=== PATIENT | female | born 1995 | race Caucasian/White ===

== ENCOUNTER 2016-12-20 13:42 | Emergency (ER) | payer OTHER ==
[2016-12-20 14:00] VITALS: BP 142/83; PULSE 89; TEMP 98.4; BMI 23.3
--- NOTE | 2016-12-20 14:24 | PDOC ---
History of Present Illness - General Chief Complaint: Sore Throat Stated Complaint: PAIN/ ABD, THROAT Time Seen by Provider: 12/20/16 14:03 History Source: Patient Exam Limitations: No Limitations - History of Present Illness Initial Comments: 12/20/16 14:21 21 yr female with c/o sore throat for 3 days. Pt also states she has had stomach ache for one year was dx with HY.Pylori and completed treatment.Pt has appointment next month with a GI doctor. pt denies nvd or fever at present. no medical history or allergies. Past History - Past Medical History Allergies/Adverse Reactions: Allergies Allergy/AdvReac Type Severity Reaction Status Date / Time No Known Allergies Allergy Verified 12/20/16 13:55 Home Medications: Ambulatory Orders NK [No Known Home Medication] 12/20/16 GI Disorders: Yes (h.pylori ) Other medical history: rhinitis - Suicide/Smoking/Psychosocial Hx Smoking History: Never smoked Hx Alcohol Use: No Drug/Substance Use Hx: No Review of Systems - Review of Systems Able to Perform ROS?: Yes Is the patient limited Tamazight proficient: No Constitutional: No: Symptoms Reported HEENTM: Yes: Symptoms Reported, Throat Pain *Physical Exam - Vital Signs Last Vital Signs Temp Pulse Resp BP Pulse Ox 98.4 F 89 18 142/83 99 12/20/16 13:45 12/20/16 13:45 12/20/16 13:45 12/20/16 13:45 12/20/16 13:45 - Physical Exam General Appearance: Yes: Nourished, Appropriately Dressed HEENT: positive: EOMI, CAILIN, Pharyngeal Erythema. negative: Tonsillar Erythema Neck: positive: Supple. negative: Lymphadenopathy (R), Lymphadenopathy (L) Respiratory/Chest: positive: Lungs Clear, Normal Breath Sounds Cardiovascular: positive: Regular Rhythm, Regular Rate Gastrointestinal/Abdominal: positive: Normal Bowel Sounds, Soft Musculoskeletal: positive: Normal Inspection Extremity: positive: Normal Capillary Refill, Normal Inspection, Normal Range of Motion Integumentary: positive: Normal Color, Dry, Warm Neurologic: positive: Fully Oriented, Alert, Normal Mood/Affect, Normal Response , Motor Strength 5/5 Medical Decision Making - Medical Decision Making 12/20/16 14:23 cc: sore throat afebrile non toxic will check for strep pt has appointment for follow up regarding chronic abd pain *DC/Admit/Observation/Transfer Diagnosis at time of Disposition: Pharyngitis Qualifiers: Pharyngitis/tonsillitis etiology: unspecified etiology Qualified Code(s): J02.9 - Acute pharyngitis, unspecified; J02.9 - Acute pharyngitis, unspecified - Discharge Dispostion Disposition: HOME Condition at time of disposition: Good - Referrals Referrals: Micaela Olivas MD [Primary Care Provider] - Zackary Blake MD [Staff Physician] - - Patient Instructions Additional Instructions: gargle with warm salt water 4-5 times a day get cepacol throat lozengers to help with sore throat drink pleanty of fluids follow with the ENT as directed for follow up - Post Discharge Activity
== END 2016-12-20 15:41 | disposition home or self-care (01) ==
LOC: JERFT 13:42
DX: J02.9 Acute pharyngitis, unspecified (principal)
CPT/HCPCS: 87070; 87430; 99281-25

== ENCOUNTER 2017-03-05 05:26 | Day surgery (SDC) | payer OTHER ==
[2017-03-01 15:04] VITALS: BMI 22.7
--- NOTE | 2017-03-04 17:03 | HP ---
Admitting History and Physical - Admission Chief Complaint: Nasal obstruction History of Present Illness: Pt with chronic nasal obstruction secondary to DNS and enlarged inferior turbinates History Source: Patient Limitations to Obtaining History: No Limitations - Past Medical History Gastrointestinal: Yes: GERD (nasal obstruction) ...LMP Comment: 02/26/17 - Past Surgical History Past Surgical History: Yes: None - Smoking History Smoking history: Current some day smoker (hooka) Have you smoked in the past 12 months: Yes - Alcohol/Substance Use Hx Alcohol Use: No Home Medications - Allergies Allergies/Adverse Reactions: Allergies Allergy/AdvReac Type Severity Reaction Status Date / Time No Known Allergies Allergy Verified 03/01/17 14:53 - Home Medications Home Medications: Ambulatory Orders Ergocalciferol (Vitamin D2) [Vitamin D2] 4,000 unit PO WEEKLY 03/01/17 Review of Systems - Review of Systems Constitutional: reports: No Symptoms HENT: reports: Nasal Congestion Neck: reports: No Symptoms Respiratory: reports: No Symptoms Physical Examination Constitutional: Yes: Well Nourished Eyes: Yes: WNL HENT: Yes: Nasal Congestion, Other (DNS with inferior turbinate hypertrophy) Respiratory: Yes: WNL Gastrointestinal: Yes: WNL Neurological: Yes: Cran Nerves II-XII Intact Problem List - Problems (1) Nasal obstruction Assessment/Plan: Pt with chronic nasal obstruction secondary to DNS and Inf Turb hypertrophy for septoplasty/SMR of turbinates Code(s): J34.89 - OTHER SPECIFIED DISORDERS OF NOSE AND NASAL SINUSES Assessment/Plan For septo/SMR under [place]
--- NOTE | 2017-03-05 09:18 | HP ---
History & Physical Update - History History: No Change - Physical Physical: No Change - Assessment Assessment: No Change - Plan Plan: No Change
[2017-03-05] MEDS ORDERED: ROCURONIUM BROMIDE 50 MG/5 ML VIAL ONE (09:29)
[2017-03-05] MEDS ORDERED: DEXAMETHASONE SOD PHOSPHATE 4 MG/1 ML VIAL ONE (09:29)
[2017-03-05] MEDS ORDERED: PROPOFOL 20 ML ONE (09:29)
[2017-03-05] MEDS ORDERED: COCAINE HCL 4% TOPICAL SOLUTION 4 ML BOTTLE TP ONE ×2 (09:29→10:10)
[2017-03-05] MEDS ORDERED: MIDAZOLAM HCL 2 MG/2 ML SINGLE DOSE VIAL ONE (09:29)
[2017-03-05] MEDS ORDERED: LIDOCAINE 1%/EPI 1:100000 (20 ML MULTI DOSE VIAL) ONE (09:31)
[2017-03-05] MEDS ORDERED: BACITRACIN 15 GM TUBE TOPICAL OINTMENT ONE (09:40)
[2017-03-05] MEDS ORDERED: LIDOCAINE 1%/EPI 1:100000 (20 ML MULTI DOSE VIAL) INF ONE (10:32)
[2017-03-05] MEDS ORDERED: GLYCOPYRROLATE 0.2 MG/1 ML VIAL ONE (10:36)
[2017-03-05] MEDS ORDERED: NEOSTIGMINE METHYLSULFATE 0.5 MG/ML - 10 ML MDV ONE (10:37)
[2017-03-05] MEDS ORDERED: oxyCODONE HCL 5 MG TABLET PO PRN (10:41)
[2017-03-05] MEDS ORDERED: ONDANSETRON 4 MG/2 ML VIAL IVPUSH PRN (10:52)
[2017-03-05] MEDS ORDERED: IBUPROFEN 800 MG/8 ML IJ IVPB PRN (10:52)
[2017-03-05] MEDS ORDERED: LACTATED RINGERS SOLUTION 1,000 ML IV SCH (11:00)
[2017-03-05 12:04] VITALS: TEMP 98
[2017-03-05] MEDS ORDERED: ONDANSETRON 4 MG/2 ML VIAL ONE (13:41)
[2017-03-05] MEDS ORDERED: ONDANSETRON 4 MG/2 ML VIAL IVPUSH ONE (13:47)
[2017-03-05 15:07] VITALS: BP 119/77; PULSE 84
--- NOTE | 2017-03-05 16:28 | OP ---
DATE OF OPERATION: 03/05/2017 PREOPERATIVE DIAGNOSIS: 1. Nasal obstruction secondary to deviated nasal septum. 2. Nasal obstruction secondary to bilateral inferior turbinate hypertrophy. POSTOPERATIVE DIAGNOSIS: 1. Nasal obstruction secondary to deviated nasal septum. 2. Nasal obstruction secondary to bilateral inferior turbinate hypertrophy. PROCEDURE: 1. Septoplasty. 2. Submucous resection bilateral inferior turbinates. ANESTHESIA: General. ANESTHESIOLOGIST: Daiana Noe M.D. BLOOD LOSS: 5 mL FINDINGS: 1. Marked septal deviation with bony spur. 2. Bilateral inferior turbinate hypertrophy. INDICATION: Patient is a 21-year-old female with chronic nasal obstruction, unrelieved with medical therapy, who presents for septoplasty and reduction of turbinates. Risks, benefits, and alternatives to the procedure were all explained to the patient. Questions were answered, consent was signed. PROCEDURE: After obtaining informed consent, patient was brought into the operating room, placed on the OR table in supine position. After general endotracheal anesthesia, was prepped and draped in the usual sterile fashion. 4% cocaine-soaked nasal pledgets were placed in the nasal cavity followed by injection of 1% lidocaine with epinephrine into nasal septal flaps, inferior turbinates, 5 mL was used. After allowing time for anesthesia to take effect, number 15 blade was used to make a left hemitransfixion incision, left mucoperichondrial flap was raised anterior-posterior fashion, anterior to the flexion incision was then made with a 15 blade through the septal cartilage and opposite side flap was raised intact. The deviated portion of the septum was isolated using sharp dissection forceps, the cartilage and bone was removed. A large dorsal L strap was left intact. Once removed, the airway appeared improved. No significant bleeding was seen. The flaps were then reapproximated with a 4-0 quilting stitch, and the incision closed with 4-0 chromic stitch. Attention was then turned to the inferior turbinates. The right inferior turbinate was medialized, stab incision was made in the anterior tip, submucosal resection was carried out with resection of the anterior portion of the turbinate bone and submucosa. Intramural cauterization with the suction Bovie cautery was performed. Flaps were reapproximated and the turbinate outfractured. Attention was then turned to the left turbinate, where again it was medialized. Stab incision made anterior tip, submucosal resection was carried out with resection of the anterior portion of the septal bone, submucosal cauterization with the suction Bovie was performed. Flaps were then reapproximated and lateralized. Marked improvement of the area was noted. No active bleeding was seen from Medpor packing was placed intranasally followed by tip dressing. No active bleeding was seen. Patient was then awoken from anesthesia, extubated, and transferred to recovery room awake, alert, in stable condition. RAEANN CALI M.D. [id number]
--- NOTE | 2017-03-06 14:13 | PATH ---
Surgical Pathology Report Patient Name: ANANTH STEVE [facility]. Rec. #: [id number] /Age/Gender: 1995 (Age: 21) / F Account: [id number] Location: [facility] SURGICAL Taken: 03/05/2017 Received: 03/05/2017 Reported: 03/06/2017 Physicians: Dale Doan M.D. Specimen(s) Received NASAL SEPTUM AND TURBINATES Clinical History Deviated nasal septum Final Diagnosis NASAL SEPTUM AND TURBINATES, BILATERAL TURBINECTOMY AND SEPTOPLASTY: FRAGMENTS OF BENIGN CARTILAGE, RESPIRATORY MUCOSA, AND BONE. Electronically Signed Lela Fang M.D. Gross Description Received in formalin labeled "nasal septum and turbinate," is a 3.5 x 2.3 x 0.2 cm aggregate of lopez, irregular portions of cartilage and bone. Skiing Instructor sections are submitted in one cassette, following decalcification. /03/05/201703/05/2017
== END 2017-03-05 15:35 | disposition home or self-care (01) ==
LOC: JASU-SURG 05:26
PROVIDERS: ATTEND Otolaryngology
PROC: 09BM8ZZ Excision of Nasal Septum, Via Natural or Artificial Opening Endoscopic (ICD-10-PCS; principal; 2017-03-05 09:00)
PROC: 09TL7ZZ Resection of Nasal Turbinate, Via Natural or Artificial Opening (ICD-10-PCS; 2017-03-05 09:00)
DX: J34.2 Deviated nasal septum (principal); J34.3 Hypertrophy of nasal turbinates
CPT/HCPCS: 84703; 88305-TC; 88311-TC; 94760

== ENCOUNTER 2020-01-18 23:17 | Emergency (ER) | payer OTHER ==
[2020-01-18 23:51] VITALS: BMI 19.3
[2020-01-19] MEDS ORDERED: METOCLOPRAMIDE HCL INJECTION 10 MG/2 ML VIAL IVPB ONE (01:04)
[2020-01-19] MEDS ORDERED: SODIUM CHLORIDE 0.9% 500 ML INFUS.BAG IV ONE (01:04)
[2020-01-19] MEDS ORDERED: ACETAMINOPHEN 1000 MG/100 ML VIAL (NON FORMULARY) IVPB ONE (01:04)
[2020-01-19] MEDS ORDERED: METOCLOPRAMIDE HCL INJECTION 10 MG/2 ML VIAL ONE (01:17)
[2020-01-19] MEDS ORDERED: ACETAMINOPHEN INJECTION 100 ML IVPB ONE (01:17)
[2020-01-19 01:50] VITALS: TEMP 97.2
[2020-01-19 02:04] LABS: BASO % 0.4 % (0-2.0); EOS % 0.9 % (0-4.5); HEMATOCRIT 38.8 % (32.4-45.2); HEMOGLOBIN 13.2 GM/dL (10.7-15.3); LYMPH % 25.1 % (8-40); MCH 30.8 pg (25.7-33.7); MCHC 33.9 g/dl (32.0-36.0); MEAN CELL VOLUME 90.9 fl (80-96); MEAN PLT VOLUME 11.5 fl (7.5-11.1); MONO % 5.3 % (3.8-10.2); NEUT % 68.3 % (42.8-82.8); PLATELET COUNT 177 K/MM3 (134-434); RBC 4.27 M/mm3 (3.60-5.2); RDW 13.3 % (11.6-15.6); WHITE BLOOD COUNT 10.5 K/mm3 (4.0-10.0)
[2020-01-19 02:19] LABS: CALCIUM 8.8 mg/dL (8.5-10.1)
[2020-01-19 02:20] LABS: ALBUMIN 3.9 g/dl (3.4-5.0); BLOOD UREA NITROGEN 11.5 mg/dL (7-18)
[2020-01-19 02:23] LABS: CREATININE 0.6 mg/dL (0.55-1.3)
[2020-01-19 02:24] LABS: BILIRUBIN,TOTAL 0.2 mg/dL (0.2-1); TOT PROT 7.7 g/dl (6.4-8.2)
[2020-01-19 03:08] VITALS: BP 118/72; PULSE 89
== END 2020-01-19 03:50 | disposition home or self-care (01) ==
LOC: JER 23:17
PROC: 3E0333Z Introduction of Anti-inflammatory into Peripheral Vein, Percutaneous Approach (ICD-10-PCS; principal; 2020-01-18)
PROC: 3E033GC Introduction of Other Therapeutic Substance into Peripheral Vein, Percutaneous Approach (ICD-10-PCS; 2020-01-18)
DX: R51.9 Headache, unspecified (principal); R55 Syncope and collapse
CPT/HCPCS: 36415; 70450-TC; 80053; 84703; 85025; 93005; 93010; 99285-25; J0131

== ENCOUNTER 2022-05-10 21:16 | Emergency (ER) | payer OTHER ==
[2022-05-10 21:25] VITALS: BP 101/57; PULSE 91; RESP 18; TEMP 97.6; BMI 23.7
[2022-05-10] MEDS ORDERED: SODIUM CHLORIDE 0.9% 500 ML INFUS.BAG IV ONE (22:32)
[2022-05-10 22:53] LABS: BASO % 0.3 % (0-2.0); EOS % 1.2 % (0-4.5); HEMOGLOBIN 10.1 GM/dL (10.7-15.3); LYMPH % 9.4 % (8-40); MCH 30.6 pg (25.7-33.7); MCHC 32.7 g/dl (32.0-36.0); MEAN CELL VOLUME 93.5 fl (80-96); MEAN PLT VOLUME 9.8 fl (7.5-11.1); MONO % 9.5 % (3.8-10.2); NEUT % 79.6 % (42.8-82.8); PLATELET COUNT 138 10^3/uL (134-434); RBC 3.31 M/mm3 (3.60-5.2); WHITE BLOOD COUNT 13.1 K/mm3 (4.0-10.0)
[2022-05-10 23:14] LABS: CALCIUM 8.6 mg/dL (8.5-10.1)
[2022-05-10 23:15] LABS: ALBUMIN 2.4 g/dl (3.4-5.0); BLOOD UREA NITROGEN 6.4 mg/dL (7-18)
[2022-05-10 23:18] LABS: CREATININE 0.3 mg/dL (0.55-1.3)
[2022-05-10 23:20] LABS: BILIRUBIN,TOTAL 0.2 mg/dL (0.2-1); MAGNESIUM 1.8 mg/dL (1.8-2.4); TOT PROT 5.8 g/dl (6.4-8.2)
== END 2022-05-11 00:23 | disposition home or self-care (01) ==
LOC: JER 21:16
DX: O26.893 Other specified pregnancy related conditions, third trimester (principal); R19.7 Diarrhea, unspecified; Z3A.29 29 weeks gestation of pregnancy
CPT/HCPCS: 36415; 80053; 83735; 85025; 99284-25

== ENCOUNTER 2022-07-26 17:00 | Inpatient (IN) | payer OTHER ==
[2022-07-26] MEDS ORDERED: DEXTROSE 5%-LACTATED RINGERS 500 ML IV ONE ×2 (17:30→18:30)
[2022-07-26 18:14] VITALS: BMI 25.9
[2022-07-26] MEDS ORDERED: DINOPROSTONE 10 MG VAGINAL SUPPOSITORY VG ONE (18:47)
[2022-07-26 19:11] LABS: OPIATES, URI NEGATIVE (NEGATIVE); URINE BARBITURATES NEGATIVE (NEGATIVE)
[2022-07-26 19:12] LABS: METHADONE, UR NEGATIVE (NEGATIVE); PHENCYCLIDINE,URINE NEGATIVE (NEGATIVE); URINE AMPHETAMINES NEGATIVE (NEGATIVE)
[2022-07-26 19:13] LABS: COCAINE, UR NEGATIVE (NEGATIVE)
[2022-07-26] MEDS ORDERED: ZOLPIDEM TARTRATE 5 MG TABLET PO PRN (19:24)
[2022-07-26 19:34] LABS: URINE BENZODIAZEPINES NEGATIVE (NEGATIVE)
[2022-07-26] MEDS: ELECTROLYTE-148 SOLN 1,000 ML IV SCH (22:45)
[2022-07-27] MEDS ORDERED: ZOLPIDEM TARTRATE 5 MG TABLET ONE (00:30)
[2022-07-27] MEDS ORDERED: BUTORPHANOL TARTRATE 2 MG/ML VIAL IVPB ONE (02:20)
[2022-07-27] MEDS ORDERED: PROMETHAZINE HCL 25 MG/1 ML VIAL IVPB ONE (02:20)
[2022-07-27] MEDS ORDERED: PROMETHAZINE HCL 25 MG/1 ML VIAL ONE (02:28)
[2022-07-27] MEDS ORDERED: BUTORPHANOL TARTRATE 2 MG/ML VIAL ONE (02:28)
[2022-07-27] MEDS ORDERED: FENTANYL/BUPIVACAINE/NS/PF - PCEA - 50 ML DISP.SYRIN EP ONE (02:47)
[2022-07-27] MEDS ORDERED: NALOXONE HCL 0.4 MG/ML VIAL IVPUSH PRN (03:34)
[2022-07-27] MEDS ORDERED: FENTANYL/BUPIVACAINE/NS/PF - PCEA - 50 ML DISP.SYRIN EP SCH (03:45)
[2022-07-27] MEDS ORDERED: OXYTOCIN 20 UNITS in 0.9% NS 20 UNIT/1,000 ML INFUS.BAG IV ONE (03:52)
[2022-07-27] MEDS: ELECTROLYTE-148 SOLN 1,000 ML IV SCH (04:00)
[2022-07-27] MEDS ORDERED: BISACODYL 10 MG SUPP.RECT RC PRN (04:23)
[2022-07-27] MEDS ORDERED: BENZOCAINE 28 GM HEMORRHOIDAL OINTMENT TP PRN (04:23)
[2022-07-27] MEDS ORDERED: BENZOCAINE 20% 57 GM BOTTLE TP PRN (04:23)
[2022-07-27] MEDS ORDERED: oxyCODONE HCL 5 MG TABLET PO PRN (04:23)
[2022-07-27] MEDS ORDERED: ACETAMINOPHEN 325 MG TABLET (FP) PO PRN (04:23)
[2022-07-27] MEDS ORDERED: IBUPROFEN 600 MG TABLET (FP) PO PRN (04:23)
[2022-07-27] MEDS ORDERED: METHYLERGONOVINE MALEATE 0.2 MG/1 ML AMP IM PRN (04:23)
[2022-07-27] MEDS ORDERED: WITCH HAZEL 50% (TUCKS) 40 PAD/JAR PAD TP PRN (04:23)
[2022-07-27] MEDS ORDERED: OXYTOCIN 20 UNITS in 0.9% NS 20 UNIT/1,000 ML INFUS.BAG IV SCH (04:30)
[2022-07-27] MEDS ORDERED: oxyCODONE HCL 5 MG TABLET ONE (05:58)
[2022-07-27] MEDS: PRENATAL VITAMINS W/ FOLIC ACID TABLET (FP) PO SCH (09:24)
[2022-07-28 08:38] LABS: BASO % 0.6 % (0-2.0); EOS % 1.4 % (0-4.5); HEMATOCRIT 31.6 % (32.4-45.2); MCH 31.7 pg (25.7-33.7); MCHC 34.8 g/dl (32.0-36.0); MEAN CELL VOLUME 90.9 fl (80-96); MEAN PLT VOLUME 11.3 fl (7.5-11.1); MONO % 5.8 % (3.8-10.2); NEUT % 71.2 % (42.8-82.8); PLATELET COUNT 138 10^3/uL (134-434); RBC 3.48 M/mm3 (3.60-5.2); RDW 14.1 % (11.6-15.6); WHITE BLOOD COUNT 9.5 K/mm3 (4.0-10.0)
[2022-07-28] MEDS: PRENATAL VITAMINS W/ FOLIC ACID TABLET (FP) PO SCH (09:29)
[2022-07-28] MEDS ORDERED: SENNOSIDES/DOCUSATE COMBO (SENNA PLUS) TABLET (UD) PO PRN (22:00)
[2022-07-29] MEDS: PRENATAL VITAMINS W/ FOLIC ACID TABLET (FP) PO SCH (09:48)
[2022-07-29 10:08] VITALS: BP 91/57; PULSE 85; RESP 17; TEMP 98
== END 2022-07-29 12:17 | disposition home or self-care (01) | DRG 560 ==
LOC: JLDR 17:00 → J3W 07-27 08:45
PROVIDERS: ADMIT Specialist; ATTEND Specialist
PROC: 3E0P7VZ Introduction of Hormone into Female Reproductive, Via Natural or Artificial Opening (ICD-10-PCS; 2022-07-26)
PROC: 10E0XZZ Delivery of Products of Conception, External Approach (ICD-10-PCS; principal; 2022-07-27)
PROC: 0W8NXZZ Division of Female Perineum, External Approach (ICD-10-PCS; 2022-07-27)
DX: O48.0 Post-term pregnancy (principal); Z3A.40 40 weeks gestation of pregnancy; Z37.0 Single live birth
CPT/HCPCS: 36415; 80053; 80307; 85025; 85027; 85610; 85730; 86780; 86850; 86900; 86901; 87389; 87635